=== PATIENT | female | born 1960 | race Caucasian/White ===

== ENCOUNTER → 2021-10-07 | Outpatient (CLI) | payer BC ==
[~2021-10-07] MED LIST: B12; DUO-KAPS1 CAP PO; MOTRIN 200200 MG/TAB PO; NORCO 325 MG-51 TAB PO; OCUVITE1 TA1 PO; PREMARIN .3MG0.3 MG
== END ==
LOC: MC.RAD 06:57
DX: Z12.31 Encounter for screening mammogram for malignant neoplasm of breast (principal)